=== PATIENT | female | born 1935 | race Caucasian/White ===

== ENCOUNTER 2017-06-16 09:24 | Emergency (ER) | payer MEDICARE, BC ==
[2017-06-16] MEDS: ASPIRIN 81 MG CHEW TABLET PO (09:45)
[2017-06-16 09:51] LABS: BASO # 0.1 10^3/uL (0.0-0.2); BASO % 0.6 % (0.0-1.0); EOS # 0.4 10^3/uL (0.0-0.50); EOS % 4.7 % (0.0-3.0); HEMATOCRIT 39.3 % (36.0-47.0); IMMATURE GRANULOCYTE % 0.3 % (0-3.0); LYMPH # 1.3 10^3/uL (1.5-4.5); LYMPH % 15.2 % (24.0-44.0); MEAN CORPUSCULAR HEMOGLOBIN 30.2 pg (27.0-33.0); MEAN CORPUSCULAR HGB CONC 33.1 g/dl (32.0-36.5); MEAN CORPUSCULAR VOLUME 91.2 fl (80.0-96.0); MONO # 0.6 10^3/uL (0.0-0.8); MONO % 6.9 % (0.0-5.0); NEUTROPHILS # 6.3 10^3/uL (1.8-7.7); NEUTROPHILS % 72.3 % (36.0-66.0); PLATELET COUNT, AUTOMATED 198 10^3/uL (150-450); RED BLOOD COUNT 4.31 10^6/uL (4.00-5.40); RED CELL DISTRIBUTION WIDTH 13.7 % (11.5-14.5); WHITE BLOOD COUNT 8.7 10^3/uL (4.0-10.0)
[2017-06-16 10:16] LABS: INR 0.99; PROTHROMBIN TIME 13.1 SECONDS (12.4-14.5)
[2017-06-16 10:34] LABS: ALBUMIN 3.7 GM/DL (3.2-5.2); ALBUMIN/GLOBULIN RATIO 1.32 (1.00-1.93); ALKALINE PHOSPHATASE 63 U/L (45-117); ALT/SGPT 25 U/L (12-78); ANION GAP 6 MEQ/L (8-16); AST/SGOT 25 U/L (7-37); BILIRUBIN,DIRECT 0.1 MG/DL (0.0-0.2); BILIRUBIN,TOTAL 0.6 MG/DL (0.2-1.0); BLOOD UREA NITROGEN 17 MG/DL (7-18); CALCIUM LEVEL 8.8 MG/DL (8.8-10.2); CARBON DIOXIDE LEVEL 30 MEQ/L (21-32); CHLORIDE LEVEL 109 MEQ/L (98-107); CPK CREATINE PHOSPHOKINASE 92 U/L (26-192); GLOMERULAR FILTRATION RATE > 60.0 (>32); GLUCOSE, FASTING 89 MG/DL (70-100); LIPASE 111 U/L (73-393); POTASSIUM SERUM 4.1 MEQ/L (3.5-5.1); SODIUM LEVEL 145 MEQ/L (136-145); TOTAL PROTEIN 6.5 GM/DL (6.4-8.2); TROPONIN I < 0.02 NG/ML (< 0.10)
[2017-06-16 10:39] LABS: CK-MB VALUE MASS 3.7 NG/ML (<3.6); MB/CK RELATIVE INDEX 4.02 (< OR =4)
[2017-06-16 12:10] LABS: CK-MB VALUE MASS 3.8 NG/ML (<3.6); CPK CREATINE PHOSPHOKINASE 72 U/L (26-192); MB/CK RELATIVE INDEX 5.27 (< OR =4); TROPONIN I < 0.02 NG/ML (< 0.10)
[2017-06-16 15:11] LABS: CK-MB VALUE MASS 3.6 NG/ML (<3.6); CPK CREATINE PHOSPHOKINASE 82 U/L (26-192); MB/CK RELATIVE INDEX 4.39 (< OR =4); TROPONIN I < 0.02 NG/ML (< 0.10)
== END 2017-06-16 16:06 | disposition home or self-care (01) ==
LOC: M ED 09:24
DX: K29.50 Unspecified chronic gastritis without bleeding (principal); R07.89 Other chest pain; F41.9 Anxiety disorder, unspecified; R00.0 Tachycardia, unspecified; G89.29 Other chronic pain; M54.5 Low back pain
CPT/HCPCS: 71045

== ENCOUNTER → 2017-09-16 | Outpatient (CLI) | payer BC, MEDICARE | LOC: M RAD 10:12 | DX: M79.605 Pain in left leg (principal); M17.12 Unilateral primary osteoarthritis, left knee; M85.862 Other specified disorders of bone density and structure, left lower leg | CPT/HCPCS: 73564 ==

== ENCOUNTER → 2017-10-07 | Outpatient (REF) | payer BC, MEDICARE ==
[2017-10-07 14:02] LABS: ALBUMIN 3.4 GM/DL (3.2-5.2); ALBUMIN/GLOBULIN RATIO 1.31 (1.00-1.93); ALKALINE PHOSPHATASE 63 U/L (45-117); ALT/SGPT 21 U/L (12-78); ANION GAP 5 MEQ/L (8-16); AST/SGOT 21 U/L (7-37); BILIRUBIN,TOTAL 0.3 MG/DL (0.2-1.0); BLOOD UREA NITROGEN 17 MG/DL (7-18); CALCIUM LEVEL 8.5 MG/DL (8.8-10.2); CARBON DIOXIDE LEVEL 32 MEQ/L (21-32); CHLORIDE LEVEL 107 MEQ/L (98-107); CREATININE FOR GFR 0.94 MG/DL (0.55-1.30); GLOMERULAR FILTRATION RATE > 60.0 (>32); GLUCOSE, FASTING 87 MG/DL (70-100); POTASSIUM SERUM 4.9 MEQ/L (3.5-5.1); SODIUM LEVEL 144 MEQ/L (136-145)
== END ==
LOC: M LABNEURO 10:48
DX: N18.9 Chronic kidney disease, unspecified (principal)
CPT/HCPCS: 80053

== ENCOUNTER → 2019-12-16 | Outpatient (CLI) | payer SELFPAY ==
[~2019-12-16] MED LIST: ATEN25TA PO; ATEN50TA2 PO; DOXE50CA PO; LATA0.0013 OU; PANT40TA29 PO; PARO40TA2 PO; SIMV10TA21 PO; SUCR1SS PO; XANA0.5T PO
== END ==
LOC: M LABSMTC 09:28
PROVIDERS: ATTEND Pediatrics
DX: Z01.818 Encounter for other preprocedural examination (principal); Z20.828 Contact with and (suspected) exposure to other viral communicable diseases

== ENCOUNTER → 2020-08-02 | Outpatient (CLI) | payer MEDICARE, BC ==
--- NOTE | 2020-08-02 16:16 | REP ---
INDICATION: PLEURAL EFFUSION, NOT ELSEWHERE CLASSIFIED. COMPARISON: Is as described above TECHNIQUE: PA and lateral FINDINGS: There are bibasilar opacities possibly improved on the left when the technical differences between the examinations are taken into consideration. The prior exam was obtained portably. There is persistent bilateral CP angle blunting unchanged on the right with a right basilar opacity which is unchanged. Cardiomediastinal silhouette is stable. There is no change in the osseous structures. IMPRESSION: Bibasilar opacities as described above consistent with bilateral pleural effusions and likely chronic bilateral atelectatic changes. Consider chest CT. <Electronically signed by Andrew Patel > 08/02/20 [id number]
== END ==
LOC: M RAD 15:24
PROVIDERS: ATTEND Internal Medicine Pulmonary Disease
DX: J90 Pleural effusion, not elsewhere classified (principal); R91.8 Other nonspecific abnormal finding of lung field

== ENCOUNTER → 2020-09-02 | Outpatient (CLI) | payer MEDICARE, BC ==
--- NOTE | 2020-09-02 14:58 | REP ---
INDICATION: ABN FINDINGS OF LUNG FIELD. COMPARISON: Comparison is made with images from [facility] study dated May 25, 2020.. TECHNIQUE: Helical scanning is acquired. 3 mm axial images are generated. Coronal and sagittal MPR and coronal MIP images are generated. 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 On axial CT images, there are bilateral pleural effusions which are small. Perhaps slightly increased compared with the May 25, [address] study[address] No pericardial effusion is seen. There is in the regular somewhat spiculated appearing nodular opacity in the right upper lobe 2.4 cm in greatest diameter. This is unchanged from the May 25, 2020 study. There is a band of linear fibrosis adjacent to this superiorly. There is some fissural thickening. Atelectasis with air bronchograms is visible in the right middle lobe and anteriorly in the right lower lobe. These findings are also unchanged. The pleural effusions have a somewhat nodular interface with the adjacent lung parenchyma in the lower lobes bilaterally. There is no evidence of mediastinal or hilar mass or adenopathy. No extra thoracic mass or adenopathy is seen. Normal adrenal glands are observed. The visualized upper abdominal structures are unremarkable. IMPRESSION: Bilateral pleural effusions right greater than left slightly increased from May 25, 2020. Atelectatic changes right lower lobe and right middle lobe. Irregularly-shaped right upper lobe nodule 2.4 cm in greatest diameter unchanged in the interval since May 25, 2020. Inflammatory versus neoplastic. Somewhat nodular pleural changes are observed bilaterally. <Electronically signed by Compa Myers > 09/02/20 [id number]
== END ==
LOC: M RAD 10:32
PROVIDERS: ATTEND Internal Medicine Pulmonary Disease
DX: R91.8 Other nonspecific abnormal finding of lung field (principal)

== ENCOUNTER → 2020-09-25 | Outpatient (CLI) | payer MEDICARE, BC ==
[2020-09-25 19:20] LABS: BASO # 0.1 10^3/uL (0.0-0.2); BASO % 0.8 % (0.0-1.0); EOS # 0.5 10^3/uL (0.0-0.5); EOS % 7.8 % (0.0-3.0); HEMOGLOBIN 13.6 g/dl (12.0-15.5); LYMPH # 1.1 10^3/uL (1.5-5.0); LYMPH % 17.9 % (24.0-44.0); MEAN CORPUSCULAR HEMOGLOBIN 27.3 pg (27.0-33.0); MEAN CORPUSCULAR HGB CONC 30.9 g/dl (32.0-36.5); MEAN CORPUSCULAR VOLUME 88.4 fl (80.0-96.0); MONO # 0.5 10^3/uL (0.0-0.8); MONO % 8.1 % (2.0-8.0); NEUTROPHILS # 3.9 10^3/uL (1.5-8.5); NEUTROPHILS % 65.2 % (36.0-66.0); PLATELET COUNT, AUTOMATED 269 10^3/uL (150-450); RED BLOOD COUNT 4.98 10^6/uL (4.00-5.40)
[2020-09-25 19:32] LABS: INR 1.06; PROTHROMBIN TIME 14.2 SECONDS (12.7-14.5)
[2020-09-25 19:43] LABS: ALBUMIN 3.4 GM/DL (3.2-5.2); ALT/SGPT 24 U/L (12-78); BILIRUBIN,TOTAL 0.4 MG/DL (0.2-1.0); BLOOD UREA NITROGEN 13 MG/DL (7-18); CALCIUM LEVEL 9.1 MG/DL (8.8-10.2); CARBON DIOXIDE LEVEL 32 MEQ/L (21-32); CHLORIDE LEVEL 104 MEQ/L (98-107); CREATININE FOR GFR 0.78 MG/DL (0.55-1.30); GLOMERULAR FILTRATION RATE > 60.0 (>32); GLUCOSE, FASTING 91 MG/DL (70-100); LDH LACTATE DEHYDROGENASE 205 U/L (84-246); NT-PRO BNP 325 PG/ML (<450); POTASSIUM SERUM 4.2 MEQ/L (3.5-5.1); SODIUM LEVEL 142 MEQ/L (136-145); TOTAL PROTEIN 6.4 GM/DL (6.4-8.2)
== END ==
LOC: M WUC 15:40
PROVIDERS: ATTEND Internal Medicine Pulmonary Disease
DX: J90 Pleural effusion, not elsewhere classified (principal); Z01.812 Encounter for preprocedural laboratory examination; R91.8 Other nonspecific abnormal finding of lung field

== ENCOUNTER → 2020-10-02 | Outpatient (CLI) | payer MEDICARE, BC ==
[~2020-10-02] MED LIST changes: +LIDOCAINE 1% MDV 20ML VIAL As Ordered ONE
--- NOTE | 2020-10-02 09:09 | REP ---
INDICATION: RIGHT PLEURAL EFFUSION, 2 VIEW. COMPARISON: Radiographs 08/02/2020, CT 09/02/2020. TECHNIQUE: Two views chest. FINDINGS: There is decreased amount of pleural fluid bilaterally compared to the prior radiographs. There is no pneumothorax status post right thoracentesis. The heart is not enlarged. The mediastinal silhouette is unchanged. There are degenerative changes of the spine. IMPRESSION: No pneumothorax status post right thoracentesis. Decreased pleural fluid bilaterally. <Electronically signed by Carrillo Tran > 10/02/20 [id number]
[2020-10-02 10:10] VITALS: BP 158/69
[2020-10-02 10:18] LABS: PH BODY FLUID 7.486 UNITS (NOT ESTABLISHED); SOURCE, BODY FLUID pH PLEURAL
[2020-10-02 10:34] LABS: APPEARANCE, BODY FLUID CLOUDY (CLEAR); PLEURAL FL COLOR YELLOW (COLORLESS); SOURCE, BODY FLUID PLEURAL
[2020-10-02 11:10] LABS: AMYLASE, BODY FLUID 51 U/L (NOT ESTABLISHED); LDH, BODY FLUID 172 U/L (NOT ESTABLISHED); SOURCE, BODY FLUID AMYLASE PLEURAL; SOURCE, BODY FLUID GLUCOSE PLEURAL; SOURCE, BODY FLUID LDH PLEURAL; SOURCE, BODY FLUID TOT PROTEIN PLEURAL
--- NOTE | 2020-10-02 16:41 | REP ---
INDICATION: RT PLEURAL EFFUSION. COMPARISON: None. TECHNIQUE: The procedure was performed under the direct supervision of Dr. Tran. The risks and benefits of the procedure were explained to the patient and informed consent was obtained. The right pleural effusion was localized using ultrasound guidance. The skin was prepped and draped in a sterile fashion. 3 mL of 1% lidocaine was used as a local anesthetic. An 8 Romanian multi side hole catheter was inserted using trocar technique. 585 mL of yellow fluid was withdrawn with a sample sent to the lab for analysis The patient tolerated the procedure well and there were no immediate complications. After the appropriate amount to monitor convalescence the patient was discharged from the department. FINDINGS: None IMPRESSION: Ultrasound-guided right thoracentesis yielding 585 mL of yellow fluid. <Electronically signed by Jeremiah Gold > 10/02/20 1520 <Electronically signed by Carrillo Tran > 10/02/20 [id number]
== END ==
LOC: M IRPRO 07:53
PROVIDERS: ATTEND Internal Medicine Pulmonary Disease
DX: J90 Pleural effusion, not elsewhere classified (principal)

== ENCOUNTER → 2021-01-06 | Outpatient (CLI) | payer MEDICARE, BC ==
[~2021-01-06] MED LIST changes: -LIDOCAINE 1% MDV 20ML VIAL As Ordered ONE
--- NOTE | 2021-01-06 15:07 | REP ---
INDICATION: DIAGNOSING LUNG CANCER R91.1. COMPARISON: Prior diagnostic CT of the chest of 09/02/[address] component of today's PET-CT cannot be accurately compared to the diagnostic CT examination of the chest obtained 09/02/2020. The nondiagnostic chest CT obtained today was obtained for the purposes of co-registration and fusion to the PET images. TECHNIQUE: After the intravenous administration of 9.10 mCi of FDG 18 triplane whole-body PET-CT was performed from the skull base to the mid thigh. FINDINGS: The spiculated nodule seen in the right upper lobe on the prior diagnostic chest CT is hypermetabolic with a maximal SUV value of 2.75. There is a hypermetabolic nonenlarged subcarinal lymph node with a maximal SUV value of 2.98. There are no additional areas of abnormal hypermetabolic activity seen in the neck, chest, abdomen, or pelvis. There are bilateral pleural effusions. This appears unchanged on the right increased on the left possibly with loculation. IMPRESSION: The spiculated right lung nodule is hypermetabolic. Additional findings as described above. <Electronically signed by Andrew Patel > 01/06/21 [id number]
== END ==
LOC: M PLARAD 09:14
PROVIDERS: ATTEND Internal Medicine Pulmonary Disease
DX: R91.1 Solitary pulmonary nodule (principal)
CPT/HCPCS: 78815; A9552

== ENCOUNTER → 2021-05-01 | Outpatient (REF) | payer MEDICARE, BC | LOC: M SFHCDERM 13:59 | PROVIDERS: ATTEND Dermatology | DX: L85.8 Other specified epidermal thickening (principal) ==

== ENCOUNTER → 2021-05-08 | Outpatient (REF) | payer MEDICARE, BC | LOC: M SFHCDERM 17:18 | PROVIDERS: ATTEND Dermatology | DX: Z48.02 Encounter for removal of sutures (principal) ==

== ENCOUNTER → 2021-07-30 | Outpatient (CLI) | payer MEDICARE, BC | LOC: M PLAIMG 15:25 | PROVIDERS: ATTEND Internal Medicine Pulmonary Disease | DX: R91.8 Other nonspecific abnormal finding of lung field (principal) ==

== ENCOUNTER → 2021-08-07 | Outpatient (CLI) | payer MEDICARE, BC ==
[~2021-08-07] MED LIST changes: +MEMA10TA19 PO; +NAME28CA PO
[2021-08-07 16:00] LABS: BASO # 0.1 10^3/uL (0.0-0.2); BASO % 1.1 % (0.0-1.0); EOS # 0.3 10^3/uL (0.0-0.5); EOS % 4.9 % (0.0-3.0); HEMATOCRIT 44.5 % (36.0-47.0); HEMOGLOBIN 13.7 g/dl (12.0-15.5); LYMPH # 0.9 10^3/uL (1.5-5.0); LYMPH % 16.4 % (24.0-44.0); MEAN CORPUSCULAR HGB CONC 30.8 g/dl (32.0-36.5); MEAN CORPUSCULAR VOLUME 94.3 fl (80.0-96.0); MONO # 0.5 10^3/uL (0.0-0.8); MONO % 8.5 % (2.0-8.0); NEUTROPHILS # 3.9 10^3/uL (1.5-8.5); NEUTROPHILS % 68.6 % (36.0-66.0); PLATELET COUNT, AUTOMATED 275 10^3/uL (150-450); RED BLOOD COUNT 4.72 10^6/uL (4.00-5.40); WHITE BLOOD COUNT 5.7 10^3/uL (4.0-10.0)
[2021-08-07 16:12] LABS: INR 0.99; PROTHROMBIN TIME 13.5 SECONDS (12.7-14.5)
[2021-08-07 16:14] LABS: PARTIAL THROMBOPLASTIN TIME 67.3 SECONDS (25.9-37.0)
[2021-08-07 16:34] LABS: ALBUMIN 3.1 GM/DL (3.2-5.2); BILIRUBIN,TOTAL 0.2 MG/DL (0.2-1.0); CALCIUM LEVEL 8.3 MG/DL (8.8-10.2); CREATININE FOR GFR 1.12 MG/DL (0.55-1.30); GLOMERULAR FILTRATION RATE 49.2 (>32); POTASSIUM SERUM 4.3 MEQ/L (3.5-5.1); TOTAL PROTEIN 6.5 GM/DL (6.4-8.2)
== END ==
LOC: M WUC 10:36
PROVIDERS: ATTEND Internal Medicine Pulmonary Disease
DX: J90 Pleural effusion, not elsewhere classified (principal); Z01.812 Encounter for preprocedural laboratory examination

== ENCOUNTER → 2021-08-08 | Outpatient (CLI) | payer MEDICARE, BC ==
[2021-08-08 13:20] LABS: PH BODY FLUID 7.563 UNITS (NOT ESTABLISHED); SOURCE, BODY FLUID pH PLEURAL
[2021-08-08 13:37] LABS: APPEARANCE, BODY FLUID HAZY (CLEAR); PLEURAL FL COLOR ORANGE (COLORLESS); SOURCE, BODY FLUID PLEURAL
[2021-08-08 13:42] LABS: AMYLASE, BODY FLUID 35 U/L (NOT ESTABLISHED); LDH, BODY FLUID 194 U/L (NOT ESTABLISHED); SOURCE, BODY FLUID AMYLASE PLEURAL; SOURCE, BODY FLUID GLUCOSE PLEURAL; SOURCE, BODY FLUID LDH PLEURAL; SOURCE, BODY FLUID TOT PROTEIN PLEURAL; TOTAL PROTEIN, BODY FLUID 3.5 G/DL (NOT ESTABLISHED)
[2021-08-08 14:30] VITALS: BP 122/78
== END ==
LOC: M RAD 12:10
PROVIDERS: ATTEND Internal Medicine Pulmonary Disease
DX: R91.8 Other nonspecific abnormal finding of lung field (principal); J90 Pleural effusion, not elsewhere classified

== ENCOUNTER → 2022-10-21 | Outpatient (CLI) | payer MEDICARE, BC | LOC: M RAD 10:32 | PROVIDERS: ATTEND Internal Medicine Pulmonary Disease | DX: R91.8 Other nonspecific abnormal finding of lung field (principal) ==

== ENCOUNTER → 2024-06-09 | Outpatient (CLI) | payer MEDICARE ==
[~2024-06-09] MED LIST changes: +MEMA10TA PO; -MEMA10TA19 PO
== END ==
LOC: M RAD 10:00
PROVIDERS: ATTEND Family Medicine
DX: R22.9 Localized swelling, mass and lump, unspecified (principal)

== ENCOUNTER → 2024-11-03 | Outpatient (REF) | payer MEDICARE ==
[2024-11-03 18:02] LABS: APPEARANCE, URINE HAZY (CLEAR); BACTERIA, URINE AUTO 1+ (NEGATIVE); BILIRUBIN, URINE AUTO NEGATIVE (NEGATIVE); BLOOD, URINE BLOOD 1+ (NEGATIVE); GLUCOSE, URINE (UA) AUTO NEGATIVE (NEGATIVE); KETONE, URINE AUTO NEGATIVE (NEGATIVE); LEUKOCYTE ESTERASE, URINE AUTO 2+ (NEGATIVE); NITRITE, URINE AUTO POSITIVE (NEGATIVE); PROTEIN, URINE AUTO NEGATIVE (NEGATIVE); RBC, URINE AUTO 1 /HPF (0-3); SPECIFIC GRAVITY URINE AUTO 1.012 (1.002-1.035); SQUAMOUS EPITHELIAL CELL UR AU 3 /HPF (0-6); UROBILINOGEN, URINE AUTO 4.0 mg/dL (0.0-2.0); WBC, URINE AUTO 32 /HPF (0-3)
== END ==
LOC: M LAB REF 16:52
PROVIDERS: ATTEND Nurse Practitioner Family
DX: N39.0 Urinary tract infection, site not specified (principal)

== ENCOUNTER → 2024-11-21 | Outpatient (REF) | payer MEDICARE ==
[2024-11-21 15:59] LABS: APPEARANCE, URINE CLOUDY (CLEAR); BACTERIA, URINE AUTO 2+ (NEGATIVE); BILIRUBIN, URINE AUTO NEGATIVE (NEGATIVE); BLOOD, URINE BLOOD NEGATIVE (NEGATIVE); GLUCOSE, URINE (UA) AUTO NEGATIVE (NEGATIVE); KETONE, URINE AUTO NEGATIVE (NEGATIVE); LEUKOCYTE ESTERASE, URINE AUTO 2+ (NEGATIVE); MUCUS, URINE SMALL (NEGATIVE); NITRITE, URINE AUTO POSITIVE (NEGATIVE); PROTEIN, URINE AUTO NEGATIVE (NEGATIVE); RBC, URINE AUTO 8 /HPF (0-3); SPECIFIC GRAVITY URINE AUTO 1.013 (1.002-1.035); SQUAMOUS EPITHELIAL CELL UR AU 36 /HPF (0-6); UROBILINOGEN, URINE AUTO 4.0 mg/dL (0.0-2.0); WBC, URINE AUTO 36 /HPF (0-3)
== END ==
LOC: M LAB REF 14:55
PROVIDERS: ATTEND Family Medicine
DX: N39.0 Urinary tract infection, site not specified (principal)